=== PATIENT | female | born 2000 | race Two or more races ===

== ENCOUNTER 2019-07-18 10:05 | Emergency (ER) | payer MEDICAID ==
[~2019-07-18] VITALS: Ht 162.6 cm; Wt 68.6 kg
[2019-07-18 10:10] VITALS: BP 107/72
[2019-07-18 10:39] LABS: MICROSCOPIC INDICATED
--- NOTE | 2019-07-18 10:48 | NUR ---
LAPPER: PT AMBULATORY TO ROOM FROM LOBBY
[2019-07-18 10:51] LABS: CULTURE INDICATED? YES
--- NOTE | 2019-07-18 10:52 | NUR ---
PT WALKED BACK TO ROOM. JOHANNA IN ROOM FOR EVAL.C/O BILAT FLANK PAIN/LBP SINCE YEST. NO DYSURIA. UA PENDING. NO OTHER PHYSICAL COMPLAINTS. CALL ROMO. SISTER AT BEDSIDE.
[2019-07-18] MEDS ORDERED: PHENAZOPYRIDINE 200 MG TABLET ONE (10:56)
[2019-07-18] MEDS ORDERED: PHENAZOPYRIDINE 200 MG TABLET PO ONE (11:00)
[2019-07-18 11:05] LABS: HCG UR SG 1.034 (1.003-1.030)
== END 2019-07-18 11:34 | disposition home or self-care (01) ==
LOC: ED 11:02
DX: R30.0 Dysuria (principal)
CPT/HCPCS: 81001; 81025; 87086; 99283